=== PATIENT | male | born 1990 | race Caucasian/White ===

== ENCOUNTER 2017-10-17 05:49 | Emergency (ER) | payer OTHER ==
[2017-10-17] MEDS ORDERED: ALBUTEROL 90 MCG/ACT 8GM HFA INHALER INH (07:00)
[2017-10-17] MEDS: predniSONE 20 MG TAB PO (07:20)
[2017-10-17] MEDS: AUGMENTIN 875 MG TAB PO (07:20)
[2017-10-17] MEDS: ALBUTEROL SULFATE 2.5 MG/0.5 ML INH NEB SOLN NEB (07:40)
== END 2017-10-17 08:32 | disposition home or self-care (01) ==
LOC: M ED 05:49
DX: J01.00 Acute maxillary sinusitis, unspecified (principal); R03.0 Elevated blood-pressure reading, without diagnosis of hypertension; Z98.890 Other specified postprocedural states; Z82.5 Family history of asthma and other chronic lower respiratory diseases
CPT/HCPCS: 94640